=== PATIENT | male | born 1960 | race Caucasian/White ===

== ENCOUNTER → 2021-07-06 | Outpatient (CLI) | payer MEDICARE | LOC: LAB SHORT 13:25 → LAB FUT 05-24 17:15 | DX: N20.1 Calculus of ureter (principal) | CPT/HCPCS: 81050 ==

== ENCOUNTER 2025-05-28 23:54 | Emergency (ER) | payer OTHER ==
[~2025-05-28] VITALS: Ht 157.5 cm; Wt 72.6 kg
[2025-05-29 03:12] VITALS: BP 116/69
== END 2025-05-29 03:10 | disposition home or self-care (01) ==
LOC: ER 23:54
DX: M25.562 Pain in left knee (principal); M25.561 Pain in right knee; W01.0XXA Fall on same level from slipping, tripping and stumbling without subsequent striking against object, initial encounter; I10 Essential (primary) hypertension
CPT/HCPCS: 99283